=== PATIENT | female | born 2000 | race Caucasian/White ===

== ENCOUNTER → 2025-01-11 07:57 | Outpatient (BNV) | payer BC, SELFPAY | PROVIDERS: Visit Provider Radiology Diagnostic Radiology | DX: M25.512 Pain in left shoulder (principal) | CPT/HCPCS: 73030 ==

== ENCOUNTER 2025-01-11 08:19 | Emergency (ER) | payer BC, SELFPAY ==
--- NOTE | ~2025-01-11 | XR_ITS ---
EXAMINATION: XR SHOULDER 2 OR MORE VIEWS LEFT HISTORY: L SHOULDER PAIN COMPARISON: There are no prior studies available for comparison. FINDINGS: Three views of the left shoulder are submitted. Osseous mineralization is normal. There is no fracture or dislocation. The glenohumeral and acromioclavicular joint spaces are preserved. The soft tissues are unremarkable. XR/XR shoulder LT min 2V IMPRESSION: Unremarkable examination of the left shoulder. Electronically signed by: Yehuda Wall MD 01/11/2025 09:02 AM EDT
[2025-01-11 08:36] VITALS: BP 136/74; PULSE 80; RESP 16; TEMP 36.4; O2SAT 100; BMI 17.9
[2025-01-11 12:08] VITALS: BP 114/68; PULSE 75; RESP 20; O2SAT 98
[2025-01-11] MEDS: Ibuprofen 400 MG TABLET PO (12:10)
--- NOTE | 2025-01-11 12:19 | ED.EXTPRO ---
HPI - Extremity Problem General Chief complaint: Extremity Problem Stated complaint: L shoulder injury Time Seen by Provider: 01/11/25 11:04 History of Present Illness HPI Narrative: Patient is a 24-year-old female presented today with having left shoulder pain that is been ongoing for the last 5 years. The shoulder got worse today. Patient presented to the ED. has a history of using her shoulder at work. 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 No systemic complaints. No chest pain or diaphoresis. Patient is from home. No coughing or congestion or upper respiratory symptoms. Related Data Previous Rx's ?Medication ?Instructions ?Recorded ibuprofen 400 mg tablet 400 mg PO Q6H PRN pain #20 tabs 01/11/25 Allergies Allergy/AdvReac Type Severity Reaction Status Date / Time No Known Allergies Allergy Verified 01/11/25 08:38 Review of Systems Review of Systems: Positive shoulder pain Yes all other systems are reviewed and are negative PMFSH Past Medical History Attestation statement: The following information was validated with the patient. Social History Social History Unable to assess alcohol history related to: Unknown Smoked in Last 30 Days: No Use of substances other than those prescribed or required for medical reasons: No Advance Directives: No Advance Directives Information Provided: No Do you have a plan to hurt others: No Plan Patient : No Physical Exam Vital Signs: Vital Signs: Last Vital Signs Temp 97.6 F 01/11/25 08:36 Pulse 75 01/11/25 12:08 Resp 20 01/11/25 12:08 BP 114/68 01/11/25 12:08 Pulse Ox 98 01/11/25 12:08 O2 Del Method Room Air 01/11/25 12:08 BMI result Body Mass Index 17.9 Appearance: Alert. Oriented X3. No acute distress. Eyes: Pupils equal, round and reactive to light. ENT: Pharynx normal. Neck: Normal inspection. Neck supple. No lymph nodes noted. No crepitus CVS: Normal heart rate and rhythm. Pulses normal. Normal S1 and S2 Respiratory: No respiratory distress. Breath sounds normal. No Wheezing. No rales Abdomen: Soft and nontender. No rigidity. No distention. good BS x4 Skin: Skin warm and dry. Normal skin color. Normal skin turgor. Extremities: No lower extremity edema. Neurovascular intact to all extremities. No Lacerations. No Rash. Examination of the left shoulder showed pain on internal external rotation. Pain on abduction. There is good sensation over the axillary nerve. There is good movement of the elbow. No gross deformity noted at the elbow. There is no tenderness on palpation of the wrist. There is no anatomical snuffbox tenderness. There is good movement of the wrist. Good movement of the finger. There is good opposition of the thumb. Patient's skin overall is intact in the up the entire upper extremity Neuro: Oriented X 3. No motor deficit. No sensory deficit. Moving all extermities. No slurred speech Medications Administered Discontinued Medications Generic Name Dose Route Start Last Admin Trade Name Freq PRN Reason Stop Dose Admin Ibuprofen 400 mg 01/11/25 11:50 01/11/25 12:10 Ibuprofen 400 Mg Tablet PO 01/11/25 11:51 400 mg ONCE ONE Administration Medical Decision Making Medical Decision Making MDM Narrative: My interpretation of patient's shoulder x-ray was grossly negative. Patient had limited range of motion of the left shoulder. Limited secondary to pain. Sensation intact skin intact. Will have patient follow-up on an outpatient basis with orthopedics. Currently in stable condition. Differential Diagnosis Differential Diagnoses: The differential diagnosis associated with the presentation includes Frozen shoulder, fracture, ligamentous injury Admission/Observation Consideration of admission/observation: Escalation of care including admission/observation considered No need to admit as patient symptoms localized Independent Interpretation I performed an independent interpretation of an: Plain X-Ray (My interpretation of patient's shoulder x-ray was grossly negative) Radiology Impression Discussion of test interpretation with radiology: I have reviewed the radiologist's reading. Social Determinants Patient?s care significantly limited by Social Determinants of Health including: Problems related to primary support group Discharge Plan Discharge Clinical Impression: Acute shoulder pain Patient Disposition: Home, Self-Care Instructions: Shoulder Pain (ED) Prescriptions: New ibuprofen 400 mg tablet 400 mg PO Q6H PRN (Reason: pain) Qty: 20 0RF Referrals: Nikolai Dey MD [Physician] - 01/18/25 Stand Alone Forms: Work/School Release Print Language: Belizean
[2025-01-11 12:39] VITALS: BP 114/68; PULSE 75; RESP 20; TEMP 36.4; O2SAT 98
== END 2025-01-11 12:40 | disposition home or self-care (01) ==
PROVIDERS: Emergency Provider Emergency Medicine Emergency Medical Services; PCP Nurse Practitioner
DX: M25.512 Pain in left shoulder (principal)
CPT/HCPCS: 73030; 99283; 99284

== ENCOUNTER 2025-03-08 08:47 | Outpatient (AMB) | payer BC, SELFPAY ==
[2025-03-08 08:51] VITALS: BMI 17.9
--- NOTE | 2025-03-08 08:51 | A.OFFVIS_ITS ---
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 Patient was referred and seen at [facility] 01/11/25, X ray was done at that visit. Patient states that for the past five years she has left shoulder pain, repetitive motion at work. At today's visit she states that both of her shoulders have a sharp to dullache with certain movements. Patient added that she has had shoulder pain over the years and increases at work. No numbness or tingling to report at this time. The patient states that at her current job she does do lifting but not over shoulder height. She has tried ibuprofen which gives her relief. At this point her right shoulder pain is more bothersome than his her left. Know: NO HX: Yes Allergies No Known Allergies Allergy (Verified 03/08/25 08:55) [facility] Social History (Updated 03/08/25 @ 08:57 by Alayna Mendez) Unable to assess alcohol history related to: Unknown Alcohol intake: never Patient Tobacco Use Status: Never used Tobacco Current occupational status: employed Current occupation: [employer] Physical Exam Vital Signs: BMI result Body Mass Index 17.9 Extrem Other: Bilateral shoulder examination shows forward flexion to 160 degrees, external rotation is 60 degrees, 4+ out of 5 strength with supraspinatus testing, positive impingement signs, no instability Results Reviewed Results Reviewed: X-rays of the patient's left shoulder show moderate acromioclavicular joint narrowing, a type 2 acromion, no acute bony abnormalities Assessment & Plan Assessment & Plan (1) Rotator cuff insufficiency of right shoulder: Code(s): M25.311 - Other instability, right shoulder Category: Medical Plan Aixa presents with bilateral shoulder pains and weakness, right greater than left, possibly due to rotator cuff tearing. Thus, I will send the patient for an MRI of her right shoulder for further evaluation. I will see her back once the MRI is completed to discuss the findings and treatment options. She will continue with her activity modifications in the meantime. I spent 20 minutes in reviewing the patient's records and imaging studies, seeing the patient and documenting in the medical record. Orders: Orders MR shoulder RT wo con Today M25.311 - Other instability, right shoulder Medications: Discontinued ibuprofen Discontinued Reason: Patient Completed Course 400 mg PO Q6H PRN 20 tabs 0RF pain Coding Level of Care Code New Pt Level 3 (42362) Complex EM visit Add On G2211 Diagnoses Rotator cuff insufficiency of right shoulder M25.311
--- OUTSIDE RECORDS SUMMARY | 2025-03-08 09:04 | XMS_ITS | Clinical Summary ---
Author Organization [facility] Address [address] [place] [id number] Phone Care Team Providers Care Wringer Operator Name Role Phone NeenaTiannaDonnie, Camila Stacey [facility] Primary Care Provid er Allergies No known active allergies Medications syringe, disposable, 1 mL SyrgIndications:M edication management 1 each by Miscellaneous route as needed. 13 each 3 10/10/19 24 Active finasteride (PROSCAR) 5 mg tabletIndications :Medication management,Gender incongruence 1/2 tablet daily by mouth 90 tablet 1 10/10/19 24 Active lidocaine-priloca ine (EMLA) creamIndications: Gender incongruence Apply topically to skin approximately 1 hour before procedure 30 g 3 05/25/20 24 Active meloxicam (MOBIC) 15 MG tabletIndications :Shoulder injury, right, initial encounter Take 1 tablet (15 mg total) by mouth daily. 30 tablet 12/03/19 25 Active estradiol valerate (DELESTROGEN) 20 mg/mL injectionIndicati ons:Gender incongruence Inject 0.25ml IM Q7days. 5 mL 12/03/19 25 Active needle, disp, 18 G 18 gauge x 1 1/2 NdleIndications:M edication management Use as directed to DRAW UP testosterone weekly 12 each 5 01/11/20 25 Active needle, disp, 25 gauge 25 gauge x 1 NdleIndications:M edication management Use to inject Testosterone weekly 12 each 4 01/11/20 25 Active methylphenidate HCl (RITALIN) 10 MG tabletIndications :Attention deficit hyperactivity disorder (ADHD), predominantly inattentive type Take 1 tablet (10 mg total) by mouth 2 (two) times a day. Do not take 2nd dose later than 3pm to avoid insomnia 60 tablet 02/13/20 25 Active methylphenidate HCl (RITALIN) 10 MG tabletIndications :Attention deficit hyperactivity disorder (ADHD), predominantly inattentive type Take 1 tablet (10 mg total) by mouth 2 (two) times a day. Do not take 2nd dose later than 3pm to avoid insomnia 60 tablet 12/29/19 25 025 Discontin ued(Reord er) Active Problems Problem Noted Date Diagnosed Date Depressive disorder 03/20/2016 Encounters Date Type Department Care Team Description 02/15/2025 Telephone [facility] [address] [place] [address] Tobi Wang LPN [facility] Provider wait list 02/11/2025 3:47 PM EDT - 02/11/2025 11:59 PM EDT Hospital Encounter [facility] [address] [address] Camila Sauceda CNP Discharge Disposition: Home or Self Care 01/11/2025 Telephone [facility] [address] [place] [address] Asha Beverly MA from Last 3 Months Immunizations Immunization Administration Dates Next Due COVID-19 (Pre-05/26) Moderna Vaccine, mRNA, PF 0 09/17/2021 Meningococcal Conjugate Quadrivalent, MenACWY-TT (MCV4) 04/09/2023 Tdap 11/06/2022 Varicella 04/03/2023 Family History Medical History Relation Comments No Known Problems Father Scoliosis Mother ADD / ADHD Sister Relation Status Comments Father Alive Mother Alive Sister Alive Social History Tobacco Use Types Packs/Day Years Used Date Smoking Tobacco: Never Smokeless Tobacco: Never Alcohol Use Standard Drinks/Week Comments Not Currently 0 (1 standard drink = 0.6 oz pur e alcohol) Child or Family Care Answer Date Record ed Do you have problems with on e of the following making it difficult for you to work, study, or receive health care? No 10/10/2023 Education Answer Date Recorded Are you interested in help w ith more adult education (for example, completing high school, GED, job training, learning the Bulgarian language, technical skills, or developing parenting skills)? No 10/10/2023 Are you concerned about learning? Not on file 10/10/2023 No 10/10/2023 Yes 10/10/2023 Food Answer Date Recorded Within the past 6 months we worried whether our food would run out before we got money to buy more. Never True 10/10/2023 Within the past 6 months the food we bought just didn't last and we didn't have enough money to get more. Never True Residential Stability Answer Date Recor ded What is your housing situation today? I have jose beauchamp 10/10/2023 How many times have you move d in the past 12 months? Zero (I did not move) 10/10/2023 Paying for Meds Answer Date Recorded Do you have trouble paying for medicines? No 10/10/2023 Paying Utility Bills Answer Date Record ed Do you have trouble paying your heating or elect ricity bill? No 10/10/2023 Transportation Answer Date Recorded Has the lack of transportati on kept you from medical appointments or from getting medications? No 10/10/2023 Unemployment Answer Date Recorded Are you currently unemployed or working on a part-time or temporary basis, and looking for work? No 10/10/2023 Digital Access Answer Date Recorded No 10/10/2023 Yes 10/10/2023 Do you have reliable internet access at home? Ye s 10/10/2023 Do you have a device (e.g., phone, tablet, computer) with a working camera? Yes 10/10/2023 Intimate Partner Violence Answer Date R ecorded Denied Basic Needs Not on file 06/04/2024 In the past 12 months have y ou been in a relationship with a person who hurts, threatens, or tries to control you? No 06/04/2024 Worried food would run out Not on file 06/04 In the past 12 months have y ou been in a relationship with a person who hurts, threatens, or tries to control you? No 06/04/2024 Sex and Gender Information Value Date Recorded Sex Assigned at Male 05/07/2022 4:37 PM EDT Legal Sex Male 1:26 PM EDT Gender Identity Female 02/27/2022 1:26 PM EDT Sexual Orientation Lesbian or Marquis 04/15/2022 10 :15 AM EDT Last Filed Vital Signs Vital Sign Reading Time Taken Comments Blood Pressure 100/50 12/02/2024 4:15 PM EDT Pulse 74 12/02/2024 4:15 PM EDT Temperature - - Respiratory Rate - - Oxygen Saturation 97% 12/02/2024 4:15 PM EDT Inhaled Oxygen Concentration - - Weight 68 kg (150 lb) 11/06/2022 3:28 PM EDT Height 177.8 cm (5' 10 ) 11/06/2022 3:28 PM EDT Body Mass Index 21.52 11/06/2022 3:28 PM EDT Plan of Treatment Health Maintenance Due Date Last Done Comments HPV VACCINES (1 - 3-dose series) 2014 COVID-19 VACCINE (2023-2 5 season) 2024 04/03/2023, 09/17/2021 DEPRESSION SCREENING 06/04/2025 06/04/2024, 06/04/2024 SMOKING Hx and SMOKELESS TOBACCO SCREENING 06/04/2025 06/04/2024 Adult Td,Tdap Booster 11/06/2032 11/06/2022 HEPATITIS C SCREENING Completed 11/25/2022 MENINGOCOCCAL VACCINES (ACWY) Aged Out 04/09/2023 No longer eligible based on patient's age to complete this topic HIV ONE-TIME SCREENING (18-6 5 YEARS) Completed 10/02/2023 HEPATITIS A VACCINES Aged Out No long er eligible based on patient's age to complete this topic HIB VACCINES Aged Out No longer eligi ble based on patient's age to complete this topic MENINGOCOCCAL VACCINES (B) Aged Out N o longer eligible based on patient's age to complete this topic PNEUMOCOCCAL VACCINES (0-49 years) Aged Out No longer eligible b ased on patient's age to complete this topic Medical Devices Not on file Procedures Procedure Name Priority Date/Time Associated Diagnosis Comments ESTRADIOL Routine 02/11/2025 3:47 PM EDT Gender incongruence TESTOSTERONE, TOTAL Routine 02/11/2025 3 :47 PM EDT Gender incongruence HEPATITIS C ANTIBODY, QUALITATIVE Routine 11/25/2022 3:57 PM EDT Need for hepatitis C screening test Encounter for general adult medical examination with abnormal findings from Last 3 Months or Most Recently Relevant to Health Maintenance Results * Estradiol (02/11/2025 3:47 PM EDT) ESTRADIOL 233 pg/mL [facility] Comment:MALE <5-61 pG/m Blood 02/11/2025 3:47 PM EDT 02/11/2025 3:51 PM EDT [facility] ErnestineDonnie DIESEL MECHANIC HELPER LAB BLOOD ORDERABLES Final Result Performing Organization Address [facility]/ZIP Co de Phone Number [address] [address] * (ABNORMAL) Testosterone, total (02/11/2025 3:47 PM EDT) TESTOSTERONE 14(L) 249 - 836 ng/dL [facility] Blood 02/11/2025 3:47 PM EDT 02/11/2025 3:51 PM EDT Camila Stacey SinhaDrake DIESEL MECHANIC HELPER LAB BLOOD ORDERABLES Final Result Performing Organization Address [facility] Co de Phone Number [address] [address] * Hepatitis C antibody, qualitative (11/25/2022 3:57 PM EDT) HCV NON-REACTIV E NON-REACTI VE [facility] Blood 11/25/2022 3:57 PM EDT 11/25/2022 4:00 PM EDT Priyanka Adamson DIESEL MECHANIC HELPER LAB BLOOD ORDERABLES Final Res ult Performing Organization Address [facility] Co de Phone Number [address] [address] from Last 3 Months or Most Recently Relevant to Health Maintenance Insurance [facility] [place] [address] [place] [address] [facility] [place] [address] Care Teams Wringer Operator Relationship Specialty Start Date End Date Camila Sauceda CNP [address] [place] [phone] PCP - General Nurse Practitioner 10/10/23 Additional Source Comments The information contained in this document represents components of the legal health record. It is not the complete legal health record.[facility]
== END 2025-03-08 09:23 | disposition home or self-care (01) ==
LOC: HO.HOS 08:48
PROVIDERS: PCP Nurse Practitioner; Visit Provider Orthopaedic Surgery
DX: M25.311 Other instability, right shoulder (principal)
CPT/HCPCS: 99203

== ENCOUNTER 2025-04-04 09:52 | Outpatient (REF) | payer BC, SELFPAY ==
--- NOTE | ~2025-04-04 | MR_ITS ---
CLINICAL HISTORY: M25.311 - Other instability, right shoulder MR right shoulder Comparison: CR/SR - XR SHOULDER 2 OR MORE VIEWS LEFT - 01/11/25 08:57 EDT Findings: No fracture or dislocation of the osseous structures. There is a trace amount of edema in the humeral head. The acromioclavicular joint is unremarkable. No joint effusion . Trace fluid in the subacromial/subdeltoid bursa. The supraspinatus, infraspinatus, subscapularis and teres minor muscles and their tendinous insertions are intact. Unremarkable labrum and cartilage. The long head of the biceps tendon is located within the bicipital groove, however the bicipital groove is located laterally rather than anteriorly, best appreciated on series 5. The bicipital labral anchor is intact. The coracoacromial and coracohumeral ligaments are intact. Cutaneous and subcutaneous tissues are normal. The quadrilateral space is unremarkable. Impression: Trace amount of edema in the humeral head of uncertain etiology. Consider altered biomechanics. Abnormal position of the humerus relative to the glenoid; the bicipital groove is located laterally rather than anteriorly. This could be positional or pathologic. This document has been electronically signed by: Debbie An MD on 04/05/2025 22:17:14
--- OUTSIDE RECORDS SUMMARY | 2025-04-04 09:59 | XMS_ITS | Clinical Summary ---
Author Organization [facility] Address [address] [place] [phone] Phone Care Team Providers Care Counter Tender Name Role Phone NeenaOrvilleDonnie Camila Stacey [facility] Primary Care Provid er Allergies No [...] avoid insomnia 60 tablet 02/13/20 25 Active Active Problems Problem Noted Date Diagnosed Date Depressive disorder 03/20/2016 Encounters Date Type Department Care Team Description 02/15/2025 Telephone [facility] [address] [place] [address] Tobi Wang LPN [facility] Provider wait list 02/11/2025 3:47 PM EDT - 02/11/2025 11:59 PM EDT Hospital Encounter [facility] 10 [facility] [address] [place] [address] Camila Sauceda, NICHOLAS Discharge Disposition: Home or Self Care 01/11/2025 Telephone [facility] [address] [place], [place] [id number] Asha Beverly MA from Last 3 Months [...] high school, GED, job training, learning the Polish language, technical skills, or developing parenting skills)? [...] HPV VACCINES (1 - 3-dose series) 2014 INFLUENZA VACCINE (#1) 2025 COVID-19 VACCINE (3 - 2024-2 6 season) 2025 04/03/2023, 09/17/2021 DEPRESSION SCREENING 06/04/2025 06/04/2024, 06/04/2024 [...] (02/11/2025 3:47 PM EDT) ESTRADIOL 233 pg/mL [facility] Comment:MALE <5-61 pG/m Blood 02/11/2025 3:47 PM EDT 02/11/2025 3:51 PM EDT [facility] Final Result Performing Organization Address [facility]/ZIP Co de Phone Number [address] [address] * (ABNORMAL) Testosterone, total (02/11/2025 3:47 PM EDT) TESTOSTERONE 14(L) 249 - 836 ng/dL [facility] Blood 02/11/2025 3:47 PM EDT 02/11/2025 3:51 PM EDT [facility] BLOOD ORDERABLES Final Result Performing Organization Address [facility] Co de Phone Number [address] [address] * Hepatitis C antibody, qualitative (11/25/2022 3:57 PM EDT) HCV NON-REACTIV E NON-REACTI VE [facility] Blood 11/25/2022 3:57 PM EDT 11/25/2022 4:00 PM EDT Priyanka Adamson [employer] LAB BLOOD ORDERABLES Final Res ult Performing Organization Address [facility]/ZIP Co de Phone Number [address] [address] from Last 3 Months or Most Recently Relevant to Health Maintenance Insurance [facility] [employer] [facility] [place] [address] [facility] [employer] Care Teams Counter Tender Relationship Specialty Start Date End Date Camila Suaceda CNP [address] [place] [id number] PCP - General Nurse Practitioner 10/10/23 Additional Source Comments The information contained in this document represents components of the legal health record. It is not the complete legal health record.[facility]
== END 2025-04-04 09:53 | disposition home or self-care (01) ==
LOC: HO.MRI 09:52
PROVIDERS: PCP Nurse Practitioner; Visit Provider Orthopaedic Surgery
DX: M25.311 Other instability, right shoulder (principal); R93.6 Abnormal findings on diagnostic imaging of limbs
CPT/HCPCS: 73221

== ENCOUNTER → 2025-04-04 09:52 | Outpatient (BNV) | payer BC, SELFPAY | PROVIDERS: PCP Nurse Practitioner; Visit Provider Radiology Diagnostic Radiology | DX: M25.311 Other instability, right shoulder (principal) | CPT/HCPCS: 73221 ==

== ENCOUNTER 2025-04-12 08:24 | Outpatient (AMB) | payer BC, SELFPAY ==
--- NOTE | 2025-04-12 08:33 | MHC.OFFVIS ---
Intake Visit Reasons: OV- Right Shoulder MRI Review, 04/05/25. Intake Note: Aixa is a 24 year old female right hand dominant who presents today as a new patient for left shoulder pain. Patient was referred and seen at [facility] 01/11/25, X ray was done at that visit. Patient states that for the past five years she has left shoulder pain, repetitive motion at work. At today's visit she states that both of her shoulders have a sharp to dullache with certain movements. Patient added that she has had shoulder pain over the years and increases at work. No numbness or tingling to report at this time. The patient states that at her current job she does do lifting but not over shoulder height. She has tried ibuprofen which gives her relief. At this point her right shoulder pain is more bothersome than his her left. Allergies No Known Allergies Allergy (Verified 04/12/25 08:34) Medication List - Last Reconciled 04/12/25 by Nikolai Dey MD No Known Home Meds [facility] Social History (Updated 03/08/25 @ 08:57 by Alayna Mendez) Unable to assess alcohol history related to: Unknown Alcohol intake: never Patient Tobacco Use Status: Never used Tobacco Current occupational status: employed Current occupation: [employer] Physical Exam Extrem Other: Right shoulder examination shows slightly decreased range of motion when compared to her left shoulder, 5/5 strength with supraspinatus testing, positive impingement signs, no instability Results Reviewed Results Reviewed: MRI of the patient's right shoulder shows moderate acromioclavicular joint narrowing, a type 3 acromion, no acute bony abnormalities, no evidence of rotator cuff tearing Assessment & Plan Assessment & Plan (1) Impingement of right shoulder: Code(s): M25.811 - Other specified joint disorders, right shoulder Category: Medical Plan Aixa presents with right shoulder pain due to impingement syndrome. I had a lengthy discussion with the patient regarding the treatment options. We will hold off on a cortisone injection for now. Did give her a prescription to go to formal physical therapy. The do's and don'ts of lifting were discussed at length with the patient. She will follow up with me on an as-needed basis should her symptoms not plateau at unacceptable level over the next few months. Feel free to call me at any time should questions regarding her orthopedic management arise. I spent 20 minutes in reviewing the patient's records and imaging studies, seeing the patient and documenting in the medical record. Orders: Orders PT Evaluation and Treatment 04/13/25 M25.811 - Other specified joint disorders, right shoulder Coding Level of Care Code Est Pt Level 3 (34404) Complex EM visit Add On G2211 Diagnoses Impingement of right shoulder M25.811
--- OUTSIDE RECORDS SUMMARY | 2025-04-12 09:25 | XMS_ITS | Clinical Summary ---
Author Organization [facility] Address [address] [place] [id number] Phone Care Team Providers Care Sewer Digger Name Role Phone Camila Sauceda [facility] Primary Care Provid er Allergies No known active allergies Medications finasteride (PROSCAR) 5 mg tabletIndications :Medication management,Gender [...] mouth daily. 30 tablet 12/03/19 25 Active methylphenidate HCl (RITALIN) 10 MG tabletIndications :Attention deficit hyperactivity disorder (ADHD), predominantly inattentive type Take 1 tablet (10 mg total) by mouth 2 (two) times a day. Do not take 2nd dose later than 3pm to avoid insomnia 60 tablet 04/05/20 25 Active syringe, disposable, 1 mL SyrgIndications:M edication management 1 each by Miscellaneous route as needed (use as directed). 13 each 3 04/05/20 25 Active estradiol valerate (DELESTROGEN) 20 mg/mL injectionIndicati ons:Gender incongruence Inject 0.25ml IM Q7days. 5 mL 04/05/20 25 Active needle, disp, 18 G 18 gauge x 1 1/2 NdleIndications:M edication management Use as directed to DRAW UP testosterone weekly 12 each 5 04/05/20 25 Active needle, disp, 25 gauge 25 gauge x 1 NdleIndications:M edication management Use to inject Testosterone weekly 12 each 4 04/05/20 25 Active syringe, disposable, 1 mL SyrgIndications:M edication management 1 each by Miscellaneous route as needed. 13 each 3 10/10/19 24 025 Discontin ued(Reord er) estradiol valerate (DELESTROGEN) 20 mg/mL injectionIndicati ons:Gender incongruence Inject 0.25ml IM Q7days. 5 mL 12/03/19 25 025 Discontin ued(Reord er) needle, disp, 18 G 18 gauge x 1 08/05 NdleIndications:M edication management Use as directed to DRAW UP testosterone weekly 12 each 5 01/11/20 25 025 Discontin ued(Reord er) needle, disp, 25 gauge 25 gauge x 1 NdleIndications:M edication management Use to inject Testosterone weekly 12 each 4 01/11/20 25 025 Discontin ued(Reord er) methylphenidate HCl (RITALIN) 10 MG tabletIndications :Attention deficit hyperactivity disorder (ADHD), predominantly inattentive type Take 1 tablet (10 mg total) by mouth 2 (two) times a day. Do not take 2nd dose later than 3pm to avoid insomnia 60 tablet 02/13/20 025 Discontin ued(Reord er) Active Problems Problem Noted Date Diagnosed Date Depressive disorder 03/20/2016 Encounters Date Type Department Care Team Description 02/15/2025 Telephone [facility] [address] [place] [address] Tobi Wang LPN Psych Provider wait list 02/11/2025 3:47 PM EDT - 02/11/2025 11:59 PM EDT Hospital Encounter [facility] [address] [address] Camila Sauceda CNP Discharge Disposition: Home or Self Care 01/11/2025 Telephone [facility] [address] [place] [address] Asha Beverly MA from Last 3 Months [...] high school, GED, job training, learning the [place] language, technical skills, or developing parenting skills)? [...] (02/11/2025 3:47 PM EDT) ESTRADIOL 233 pg/mL [facility] Comment:MALE <5-61 pG/m Blood 02/11/2025 3:47 PM EDT 02/11/2025 3:51 PM EDT Camila Sauceda [facility] LAB BLOOD ORDERABLES Final Result Performing Organization Address City/[facility]/ZIP Co de Phone Number [address] [address] * (ABNORMAL) Testosterone, total (02/11/2025 3:47 PM EDT) TESTOSTERONE 14(L) 249 - 836 ng/dL [facility] Blood 02/11/2025 3:47 PM EDT 02/11/2025 3:51 PM EDT [facility] LAB BLOOD ORDERABLES Final Result [address] [address] * Hepatitis C antibody, qualitative (11/25/2022 3:57 PM EDT) HCV NON-REACTIV E NON-REACTI VE [facility] Blood 11/25/2022 3:57 PM EDT 11/25/2022 4:00 PM EDT us Priyanka Adamson MARKETING OFFICER LAB BLOOD ORDERABLES Final Res ult [facility] [address] [place] [address] from Last 3 Months or Most Recently Relevant to Health Maintenance Insurance [employer] [facility] [address] [place] [address] [place] [address] [place] [address] Care Teams Sewer Digger Relationship Specialty Start Date End Date Camila Sauceda CNP [address] [place] [id number] PCP - General Nurse Practitioner 10/10/23 Additional Source Comments The information contained in this document represents components of the legal health record. It is not the complete legal health record.[facility]
== END 2025-04-12 08:43 | disposition home or self-care (01) ==
LOC: HO.HOS 08:25
PROVIDERS: PCP Nurse Practitioner; Visit Provider Orthopaedic Surgery
DX: M25.811 Other specified joint disorders, right shoulder (principal)
CPT/HCPCS: 99213